=== PATIENT | female | born 1955 | race Caucasian/White ===

== ENCOUNTER → 2017-08-04 | Outpatient (REF) | LOC: ZLAB.WCH 12:27 | DX: Z01.89 Encounter for other specified special examinations (principal) ==

== ENCOUNTER → 2017-08-06 | Outpatient (REF) | LOC: ZLAB.WCH 18:10 | DX: Z01.89 Encounter for other specified special examinations (principal) ==

== ENCOUNTER → 2018-08-09 | Outpatient (REF) | LOC: ZLAB.WCH 13:24 | DX: Z01.89 Encounter for other specified special examinations (principal) ==

== ENCOUNTER → 2019-07-22 | Outpatient (CLI) | payer BC | LOC: MC.RAD 16:15 | DX: Z12.31 Encounter for screening mammogram for malignant neoplasm of breast (principal) ==

== ENCOUNTER → 2020-06-11 | Outpatient (CLI) | payer BC | LOC: MC.RAD 07:41 | DX: Z12.31 Encounter for screening mammogram for malignant neoplasm of breast (principal) ==

== ENCOUNTER → 2021-07-07 | Outpatient (CLI) | payer BC | LOC: MC.RAD 12:10 | DX: Z12.31 Encounter for screening mammogram for malignant neoplasm of breast (principal) ==